=== PATIENT | female | born 1955 ===

== ENCOUNTER 2022-06-30 09:45 | Inpatient (IN) | payer OTHER ==
[~2022-06-30] VITALS: Ht 154.9 cm; Wt 70.3 kg
[2022-06-30] MEDS ORDERED: PECID PO (11:28)
[2022-06-30] MEDS ORDERED: DEXILANT60 MG PO (11:28)
[2022-06-30] MEDS ORDERED: LEVALB IH (11:29)
[2022-06-30] MEDS ORDERED: [UNRECOGNIZED DRUG - CODE] IH (11:29)
[2022-06-30] MEDS ORDERED: [UNRECOGNIZED DRUG - OTHER] PO (11:30)
[2022-06-30] MEDS ORDERED: VITAMIN C PO (11:30)
[2022-06-30] MEDS ORDERED: VITAMIN B-121000 MC4 PO (11:30)
[2022-06-30] MEDS ORDERED: VITAMIN D PO (11:31)
[2022-07-01] MEDS ORDERED: TRELEGY ELLIPT1 EAC1 (13:27)
[2022-07-01] MEDS ORDERED: FAMOTIDINE40 MG (13:28)
[2022-07-01] MEDS ORDERED: LEVALBUTEROL TA15 GM (13:28)
[2022-07-01] MEDS ORDERED: WAL-FEX ALLERG180 MG (13:29)
[2022-07-01] MEDS ORDERED: LEVALBUTER0.63 MG/3 (13:29)
[2022-07-01] MEDS ORDERED: MONTELUKAST SOD10 MG (13:29)
[2022-07-01] MEDS ORDERED: FLONASE16 GM (13:29)
[2022-07-01] MEDS ORDERED: VITAMIN D3125 MCG (13:30)
[2022-07-01] MEDS ORDERED: CALTRATE 600 +1 EAC1 (13:31)
[2022-07-01] MEDS ORDERED: VITAMIN C100 MG (13:31)
== END 2022-07-02 18:13 | disposition home or self-care (01) | DRG 742 ==
LOC: O/R 07-01 08:15 → OB/GYN 07-01 08:15 → SURG 07-01 09:00 → OB/GYN 07-01 14:26
PROVIDERS: ADMIT Specialist; ATTEND Specialist
PROC: 0UT54ZZ Resection of Right Fallopian Tube, Percutaneous Endoscopic Approach (ICD-10-PCS; 2022-07-01)
PROC: 0UNF4ZZ Release Cul-de-sac, Percutaneous Endoscopic Approach (ICD-10-PCS; 2022-07-01)
PROC: 0UN44ZZ Release Uterine Supporting Structure, Percutaneous Endoscopic Approach (ICD-10-PCS; 2022-07-01)
PROC: 0TN64ZZ Release Right Ureter, Percutaneous Endoscopic Approach (ICD-10-PCS; 2022-07-01)
PROC: 0DNW4ZZ Release Peritoneum, Percutaneous Endoscopic Approach (ICD-10-PCS; 2022-07-01)
PROC: 0DNN4ZZ Release Sigmoid Colon, Percutaneous Endoscopic Approach (ICD-10-PCS; 2022-07-01)
PROC: 0UT04ZZ Resection of Right Ovary, Percutaneous Endoscopic Approach (ICD-10-PCS; principal; 2022-07-01 09:00)
DX: N83.291 Other ovarian cyst, right side (principal); K66.1 Hemoperitoneum; N73.6 Female pelvic peritoneal adhesions (postinfective); J45.909 Unspecified asthma, uncomplicated; K21.9 Gastro-esophageal reflux disease without esophagitis